=== PATIENT | female | born 1955 | race African-American/Black ===

== ENCOUNTER 2016-12-13 06:15 | Emergency (ER) | payer SELFPAY ==
[2016-12-13 06:33] VITALS: BP 146/91; BMI 35.1
[2016-12-13 07:08] LABS: BASOPHILS # (AUTO) 0.1 X10^3/uL (0.0-0.1); BASOPHILS % (AUTO) 0.7 % (0.2-1.0); EOSINOPHILS # (AUTO) 0.1 x10^3/uL (0.0-0.2); EOSINOPHILS % (AUTO) 1.5 % (0.9-2.9); HEMATOCRIT 40.8 % (36.0-47.0); LYMPHOCYTES # (AUTO) 1.9 X10^3/uL (1.3-2.9); LYMPHOCYTES % (AUTO) 25.6 % (21.0-51.0); MEAN CORPUSCULAR HEMOGLOBIN 31.2 pg (27.0-34.0); MEAN CORPUSCULAR HGB CONC 34.2 g/dL (33.0-35.0); MEAN CORPUSCULAR VOLUME 91.1 fL (80.0-100.0); MEAN PLATELET VOLUME 7.1 fL (7.4-11.0); MONOCYTES # (AUTO) 0.6 x10^3/uL (0.3-0.8); MONOCYTES % (AUTO) 8.3 % (0.0-13.0); NEUTROPHILS # (AUTO) 4.8 x10^3/uL (2.2-4.8); NEUTROPHILS % (AUTO) 63.9 % (42.0-75.0); PLATELET COUNT 266 X10^3/uL (150.0-450.0); RED BLOOD COUNT 4.48 X10^6/uL (3.5-5.4); RED CELL DISTRIBUTION WIDTH 14.1 % (11.6-16.5); WHITE BLOOD COUNT 7.5 X10^3/uL (3.6-10.0)
[2016-12-13 07:16] LABS: BLOOD UREA NITROGEN 17 mg/dL (7-18); CALCIUM 9.3 mg/dL (8.5-10.1); CHLORIDE 103 mmol/L (98-107); CREATININE 0.82 mg/dL (0.55-1.02); SODIUM 140 mmol/L (136-145); eGFR BLACK RACES > 60 (>60); eGFR NON BLACK RACES > 60 (>60)
--- NOTE | 2016-12-13 07:20 | DR.GENAD ---
HPI - PCP Primary Care Physician: TOSHA PAEZ - Complaint/Symptoms Chief Complaint Doctors Comments: Patient denies fever, vomiting or diarrhea. 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 Chief Complaint:: PATIENT STATED SHE HAS BEEN HAVING ABD PAIN FOR 2 WEEKS. SHE STATED SHE HAS BEEN BLOATED AND GASSEY. Self Treatment fo Chief Complaint: MAYLOX,PEPTO BISMOL - Source History Provided: Patient - Mode of Arrival Mode of Arrival: Ambulatory - Timing Onset of Chief Complaint: 11/29/16 PMH - PMH Past Medical History: Yes Past Medical History: Arthritis, Hypertension Past Medical History Comment: DIVERTICULOSIS Past Surgical History: Yes Surgical History: Hysterectomy - Family History History of Family Medical Conditions: No - Social History Does patient currently use any type of tobacco product: No Have you used tobacco products in the last 12 months: No Type of Tobacco Use: None Does any household member use tobacco: Yes Alcohol Use: None Do you use any recreational Drugs:: No Lives With: Family Lives Where: Home - infectious screening In the last 2 months have you had wt loss of >10#?: NO Have you had fever, night sweats or hemotysis?: No Have you traveled outside the country in the last 6 months?: No Isolation: Standard ROS - Review of Systems Constitutional: No Symptoms Reported Eyes: No Symptoms Reported ENTM: No Symptoms Reported Respiratoy: No Symptoms Reported Cardiovascular: No Symptoms Reported Gastrointestinal/Abdominal: No Symptoms Reported Genitourinary: No Symptoms Reported Neurological: No Symptoms Reported Musculoskeletal: No Symptoms Reported Integumentary: No Symptoms Reported Hematologic/Lymphatic: No Symptoms Reported Endocrine: No Symptoms Reported Psychiatric: No Symptoms Reported All Other Systems: Reviewed and Negative PE - Vital Signs Vitals: Temperature 97.8 F Pulse Rate 76 Respiratory Rate 18 Blood Pressure 146/91 O2 Sat by Pulse Oximetry 99 - General Limitations: No Limitations General Appearance: Alert - Head Head Exam: Normal Inspection, Atraumatic - Eyes Eye exam: Normal Appearance, PERRL, EOMI - ENT ENT Exam: Normal Exam External Ear Exam: Normal External Inspection TM/Canal Exam: Bilateral Normal Nose Exam: Normal Nose Exam Mouth Exam: Normal Inspection Throat Exam: Normal Inspection - Neck Neck Exam: Normal Inspection, Full ROM - Chest Chest Inspection: Normal Inspection - Respiratory Respiratory Exam: Normal Lung Sounds Bilat Respiratory Exam: Bilateral Clear to Auscultation - Cardiovascular Cardiovascular Exam: Regular Rate, Normal Rhythm - Abdominal Exam Abdominal Exam: Normal Inspection, Soft. negative: Tenderness Abdominal Tenderness: negative: RUQ, RLQ, LUQ, LLQ, Epigastrium, Suprapubic, Diffuse, Mild, Moderate, Severe, Other - Extremities Extremities Exam: Normal Inspection, Full ROM - Back Back Exam: Normal Inspection - Neurologic Neurological Exam: Alert, Oriented X3, CN II-XII Intact - Psychiatric Psychiatric Exam: Normal Affect - Skin Skin Exam: Warm, Dry, Intact ROR - Labs Reviewed Result Diagrams: 12/13/16 07:00 12/13/16 07:00 Laboratory: WBC 7.5 X10^3/uL (3.6-10.0) 12/13/16 07:00 RBC 4.48 X10^6/uL (3.5-5.4) 12/13/16 07:00 Hgb 14.0 g/dL (12.0-16.0) 12/13/16 07:00 Hct 40.8 % (36.0-47.0) 12/13/16 07:00 MCV 91.1 fL (80.0-100.0) 12/13/16 07:00 MCH 31.2 pg (27.0-34.0) 12/13/16 07:00 MCHC 34.2 g/dL (33.0-35.0) 12/13/16 07:00 RDW 14.1 % (11.6-16.5) 12/13/16 07:00 Plt Count 266 X10^3/uL (150.0-450.0) 12/13/16 07:00 MPV 7.1 fL (7.4-11.0) L 12/13/16 07:00 Neut % 63.9 % (42.0-75.0) 12/13/16 07:00 Lymph % 25.6 % (21.0-51.0) 12/13/16 07:00 [place] % 8.3 % (0.0-13.0) 12/13/16 07:00 Eos % 1.5 % (0.9-2.9) 12/13/16 07:00 Baso % 0.7 % (0.2-1.0) 12/13/16 07:00 Neut # 4.8 x10^3/uL (2.2-4.8) 12/13/16 07:00 Lymph # 1.9 X10^3/uL (1.3-2.9) 12/13/16 07:00 [place] # 0.6 x10^3/uL (0.3-0.8) 12/13/16 07:00 Eos # 0.1 x10^3/uL (0.0-0.2) 12/13/16 07:00 Baso # 0.1 X10^3/uL (0.0-0.1) 12/13/16 07:00 Absolute Nucleated RBC 0.0 /100WBC 12/13/16 07:00 Sodium 140 mmol/L (136-145) 12/13/16 07:00 Corrected Sodium TNP 12/13/16 07:00 Potassium 3.9 mmol/L (3.5-5.1) 12/13/16 07:00 Chloride 103 mmol/L (98-107) 12/13/16 07:00 Carbon Dioxide 28.0 mmol/L (21-32) 12/13/16 07:00 BUN 17 mg/dL (7-18) 12/13/16 07:00 Creatinine 0.82 mg/dL (0.55-1.02) 12/13/16 07:00 Est GFR (MDRD) Af Amer > 60 (>60) 12/13/16 07:00 Est GFR (MDRD) Non-Af > 60 (>60) 12/13/16 07:00 Glucose 104 mg/dL (65-99) H 12/13/16 07:00 Calcium 9.3 mg/dL (8.5-10.1) 12/13/16 07:00 C-Reactive Protein 3.70 mg/L (0-3.0) H 12/13/16 07:00 - XRAY XRAY Interpreted by: Radiologist (KUB: Chest: Lungs are clear without focal infiltrate or effusion. The bony thorax is unremarkable. Flat plate and upright evaluation of the abdomen demionstrates a slight increase in small bowel gas in the mid epigastric region. Air and stool present throughout the colon including the rectum. There is no evidence of bowel obstruction, free intraperitoneal air or fluid. No pathological soft tissue mass or calcification can be observed. The bony structures are grossly intact.) - Discharge Plan Condition: Stable - Follow ups/Referrals Follow ups/Referrals: MAYRA PAEZ [Primary Care Provider] - 3 days - Instructions
--- NOTE | 2016-12-13 07:23 | RAD ---
HISTORY: Abdominal pain, hypertension, prior history of diverticulosis. Study: Acute abdominal series Comparison: No priors Findings: The trachea is midline. The cardiac silhouette is at the upper limits of normal with aortic uncoilin g.. The lungs are clear without focal infiltrate or effusion. The bony thorax is unremarkable. Flat plate and upright evaluation of the abdomen demonstrates a slight increase in small bowel gas in the mid epigastric region. Air and stool present throughout the colon including the rectum. There is no evidence of bowel obstruction, free intraperitoneal air or fluid.. No pathological soft tissue m ass or calcification can be observed. The bony structures are grossly intact. IMPRESSION: 1. Hypertensive configuration without acute cardiopulmonary disease 2. Mild small bowel ileus pattern without bowel obstruction or perforation. Reported By:
[2016-12-13 07:43] LABS: BILIRUBIN,URINE NEGATIVE (NEGATIVE); BLOOD/HEMOGLOBIN,URINE 1+ (NEGATIVE); GLUCOSE, URINE NEGATIVE (NEGATIVE); KETONES,URINE NEGATIVE (NEGATIVE); LEUKOCYTE ESTERASE ,URINE NEGATIVE (NEGATIVE); NITRITES,URINE NEGATIVE (NEGATIVE); PH,URINE 6.5 (5.0 - 8.0); PROTEIN,URINE NEGATIVE (NEGATIVE); UROBILINOGEN,URINE NORMAL (NORMAL)
[2016-12-13 07:56] LABS: APPEARANCE,URINE CLEAR (CLEAR); BACTERIA,URINE NEGATIVE /HPF (NEGATIVE); COLOR,URINE YELLOW (YELLOW); RBC,URINE 0-3 /HPF (NEGATIVE); SQUAMOUS EPITHELIAL CELL,UR FEW /HPF (NEGATIVE)
== END 2016-12-13 08:04 | disposition home or self-care (01) ==
LOC: MERGE 06:15 → ER 06:15
DX: K56.7 Ileus, unspecified (principal)
CPT/HCPCS: 36415; 74022; 80048; 81001; 85025; 86140; 99282; 99283